=== PATIENT | female | born 1975 | race Caucasian/White ===

== ENCOUNTER 2025-01-27 13:47 | Outpatient (AMB) | payer BC, SELFPAY ==
--- OUTSIDE RECORDS SUMMARY | 2022-12-12 12:23 | XMS_ITS | Encounter Summary ---
Author Organization [facility] Address [address] [place] [phone] Phone Care Team Providers Care Director Safety Name Role Phone Gina Alves MD Primary Care Prov ider Encounter Details Date Type Department Care Team (Late st Contact Info) Description 12/12/2022 12:23 PM EDT Hospital Encounter [facility] [address] [place] [phone] Rose Henderson, VICE PRESIDENT TALENT MANAGEMENT [address] [place] [address] [email or web address] Social History Tobacco Use Types [...] body is visualized. us Rose B Kiall VICE PRESIDENT TALENT MANAGEMENT IMG XR LOWER EXTREMITY Gissell l Result documented in this encounter Visit Diagnoses Not on filedocumented in this encounter Care Teams Director Safety Relationship Specialty Start Date End Date Gina Alves MD [address] [place] [address] [place] [address] PCP - General 12/12/22 documented as of this encounter Additional Source Comments The information contained in this document represents components of the legal health record. It is not the complete legal health record.[facility]
--- OUTSIDE RECORDS SUMMARY | 2025-01-27 15:57 | XMS_ITS | Continuity of Care Document ---
Author Organization [facility] [address] [place] [address] Phone [phone] Care Team Providers Care Senior Information Security Consultant Name Role Phone Gina Alves M.D. Care Team Informati on Mental Health Social Worker [phone] Problems Active Problems Provider Date Type 2 diabetes mellitus Gina Alves M.D. Onset: 12/28/2021 Essential hypertension Cynthia Vergara Onset: 12/28/2021 Anxiety Gina Alves M.D. Ons et: 12/28/2021 Obstructive sleep apnea syndrome Gina Gibson M.D. Onset: 12/28/2021 Gastroesophageal reflux disease Gina Moreland M.D. Onset: 12/28/2021 Obesity Gina Alves M.D. Ons et: 12/28/2021 Mixed hyperlipidemia Francois Vergara Onset: 12/28/2021 Chronic depression Gina Alves M.D. Onset: 12/28/2021 Nonalcoholic steatohepatitis Gina harper M.D. Onset: 12/28/2021 Environmental allergy Wojciech Vergara Onset: 10/28/2023 Social History Type Date Description Comments Sex Female Sex Unknown Lives With Roommate Occupation [employer] Work Status Full-Time Employment ETOH Use Occasionally consumes alcoho l Tobacco Use Start: Unknown Patient has never smoked Allergies and adverse reactions Description No Known Drug Allergies Medications Active Medications SIG Qnty Indications Order ing Provider Date Lauraity4.5mg/0.5M L Solution Auto-Inject Inject 4.5 MG Subcutaneously Every Week 2ml E11.9 Gina Alves M.D. 01/13/2025 Mounjaro7.5mg/0.5ML Solution Auto-Inject Inject 7.5 MG Subcutaneously Once A Week as Directed 2units E11.9 Gina Alves M.D. 06/17/2024 E66.9 Atorvastatin Bhaohin10ul Tablets take 1 tablet by mouth daily 90tabs Gina Alves M.D. 01/20/2023 Norethindrone Xalqmix8rk Tablets Take 1 Tablet By Mouth Daily For 1 Week Per Month 21tabs Gina Alves M.D. Crchyyurgd11uu Tablets Take 1 Tablet By Mouth Every Day 90tabs Gina Alves M.D. Metformin [id number] Tablets Take 1 Tablet By Mouth Every Morning And 2 Tablets Every Evening 270tabs Gina Alves M.D. Sertraline LJO03ml Tablets Take 1 Tablet By Mouth Every Day 90tabs Gina Alves M.D. Dzaldnkjj82fw Tablets Take One Tablet By Mouth Daily 90tabs Gina Alves M.D. Mgmeubfayb44yp Capsules DR 1 by mouth every day Gina Alves M.D. Aulrjzxgab24cj Capsules 1 by mouth every day Gina Alves M.D. Ferrous Ugfbdgl945(65Fe) mg Tablets 1 by mouth every other day Gina Alves M.D. Vitamin C500mg Tablets 1 by mouth every other day Gina Alves M.D. Nxafxl071tu Capsules 1 by mouth every other day Gina Alves M.D. Vitamin E180mg (400 Unit) Capsules 2 qd Gina Alves M.D. Womens MultivitaminTablets 1 by mouth every day Gina Alves M.D. History Medications Adnljoyzh4ug/0.5ML Solution Auto-Inject Inject 3 MG Subcutaneously Every Week 2ml E11.9 Gina Alves M.D. 10/15/2024 - 01/13/2025 Vital Signs Date Vital Result Comment 08/27/2024 2:27pm BP Systolic 130 mmHg BP Diastolic 80 mmHg Heart Rate 99 /min Height 63 inches 5'3 Weight 251.25 lb BMI (Body Mass Index) 44.5 kg/m2 Results Test Acquired Date Facility Test Result H/L Range Note Vitamin B12 08/27/2024 [facility] Vitamin B12 533 pg/mL 232-1245 Comp. Metabolic Panel (14) 08/27/2024 [facility] Glucose 125 mg/dL High 70-99 BUN 13 mg/dL 6-24 Creatinine 0.82 mg/dL 0.57-1.0 0 eGFR 87 mL/min/1. 73 >59 BUN/Creatinine Ratio 16 9-23 Sodium 142 mmol/L 134-144 Potassium 4.1 mmol/L 3.5-5.2 Chloride 103 mmol/L 96-106 Carbon Dioxide, Total 16 mmol/L Low 20-29 Calcium 9.2 mg/dL 8.7-10.2 Protein, Total 7.3 g/dL 6.0-8.5 Albumin 4.4 g/dL 3.9-4.9 Globulin, Total 2.9 g/dL 1.5-4.5 Bilirubin, Total <0.2 mg/dL 0.0-1.2 Alkaline Phosphatase 103 IU/L 44-121 Ast (Sgot) 41 IU/L High 0-40 Alt (SGPT) 34 IU/L High 0-32 Hemoglobin A1c 08/27/2024 Inhouse Hemoglobin A1c 6.1% Glucose Fingerstick 08/27/2024 Inhouse Glucose Fingerstick 134 Glucose Fingerstick 04/29/2024 Inhouse Glucose Fingerstick 107 Comp. Metabolic Panel (14) 02/17/2024 [facility] Glucose 105 mg/dL High 70-99 BUN 15 mg/dL 6-24 Creatinine 0.83 mg/dL 0.57-1.0 0 eGFR 86 mL/min/1. 73 >59 BUN/Creatinine Ratio 18 9-23 Sodium 140 mmol/L 134-144 Potassium 4.2 mmol/L 3.5-5.2 Chloride 100 mmol/L 96-106 Carbon Dioxide, Total 24 mmol/L 20-29 Calcium 9.1 mg/dL 8.7-10.2 Protein, Total 7.4 g/dL 6.0-8.5 Albumin 4.2 g/dL 3.9-4.9 Globulin, Total 3.2 g/dL 1.5-4.5 Bilirubin, Total <0.2 mg/dL 0.0-1.2 Alkaline Phosphatase 96 IU/L 44-121 Ast (Sgot) 48 IU/L High 0-40 Alt (SGPT) 40 IU/L High 0-32 CBC With Differential/Plat elet 02/17/2024 [facility] WBC 6.8 x10E3/uL 3.4-10.8 RBC 5.15 x10E6/uL 3.77-5.2 8 Hemoglobin 14.4 g/dL 11.1-15. 9 Hematocrit 44.9 % 34.0-46. 6 MCV 87 fL 79-97 MCH 28.0 pg 26.6-33. 0 MCHC 32.1 g/dL 31.5-35. 7 RDW 13.4 % 11.7-15. 4 Platelets 344 x10E3/uL 150-450 Neutrophils 57 % Not Estab. Lymphs 32 % Not Estab. Monocytes 10 % Not Estab. Eos 1 % Not Estab. Basos 0 % Not Estab. Immature Cells TNP Neutrophils (Absolute) 3.8 x10E3/uL 1.4-7.0 Lymphs (Absolute) 2.2 x10E3/uL 0.7-3.1 Monocytes(Absol u te) 0.7 x10E3/uL 0.1-0.9 Eos (Absolute) 0.1 x10E3/uL 0.0-0.4 Baso (Absolute) 0.0 x10E3/uL 0.0-0.2 Immature Granulocytes 0 % Not Estab. Immature Grans (Abs) 0.0 x10E3/uL 0.0-0.1 NRBC TNP Hematology Comments: TNP Albumin/Creatinin e Ratio, Random Urine 02/17/2024 [facility] Creatinine, Urine 91.3 mg/dL Not Estab. Albumin, Urine 4.6 ug/mL Not Estab. Alb/Creat Ratio 5 mg/gcreat 0-29 1 Glucose Fingerstick 02/17/2024 Inhouse Glucose Fingerstick 122 Hemoglobin A1c 02/17/2024 Inhouse Hemoglobin A1c 6.4% Glucose Fingerstick 10/28/2023 Inhouse Glucose Fingerstick 129 Hemoglobin A1c 10/28/2023 Inhouse Hemoglobin A1c 6.3% Comprehensive Metabolic Panl 07/19/2023 [facility] Glucose 85 mg/dL (70-99) BUN 12 mg/dL (6-20) Creatinine 0.9 mg/dL (0.5-1.0 ) Sodium 140 mmol/L (133-145 ) Potassium 4.5 mmol/L (3.6-5.2 ) Chloride 100 mmol/L (98-107) Bicarbonate 25 mmol/L (22-29) Anion Gap 15 (4-17) Albumin 4.5 GM/DL (3.4-4.8 ) Calcium 9.4 mg/dL (8.6-10. 5) Bilirubin,Total 0.2 mg/dL (0-1.2 ) Total Protein 7.5 GM/DL (6.2-8.2 ) Ag Ratio 1.5 Ast 37 U/L High (0-32) Alk Phos 82 U/L (35-104) Alt 30 U/L (0-33) Estimated GFR Creatinine 83 ML/MIN/1. 73M2 2 Hemoglobin A1c 07/19/2023 Inhouse Hemoglobin A1c 6.0% Glucose Fingerstick 07/19/2023 Inhouse Glucose Fingerstick 106 Lipid Panel 07/18/2023 [facility] Cholesterol, Total 142 mg/dL (<200) Triglyceride 135 mg/dL (<150) HDL Chol 33 mg/dL Low (>39) LDL Cholesterol , Calculated 82 mg/dL (0-130) Non HDL Cholesterol (Calc) 109 mg/dL (<160) Glucose Fingerstick 04/15/2023 Inhouse Glucose Fingerstick 149 Hemoglobin A1c 04/15/2023 Inhouse Hemoglobin A1c 6.2% Urinary Microalbumin 01/18/2023 [facility] Micro-Albumin <12.0 mg/L (<20) 3 Malb/Creat Ratio Unable t o calcul <SEE NOTE> MG/GM (0-20) 4 Urine Creat For Micro Albumin 92.3 mg/dL Lipid Panel 01/18/2023 [facility] Cholesterol, Total 175 mg/dL (<200) Triglyceride 147 mg/dL (<150) HDL Chol 38 mg/dL Low (>39) LDL Cholesterol , Calculated 108 mg/dL (0-130) Non HDL Cholesterol (Calc) 137 mg/dL (<160) Comprehensive Metabolic Panl 01/18/2023 [facility] Glucose 102 mg/dL High (70-99) BUN 12 mg/dL (6-20) Creatinine 0.8 mg/dL (0.5-1.0 ) Sodium 141 mmol/L (133-145 ) Potassium 4.2 mmol/L (3.6-5.2 ) Chloride 103 mmol/L (98-107) Bicarbonate 26 mmol/L (22-29) Anion Gap 12 (4-17) Albumin 4.0 GM/DL (3.4-4.8 ) Calcium 9.0 mg/dL (8.6-10. 5) Bilirubin,Total <0.2 mg/dL (0-1.2) Total Protein 6.6 GM/DL (6.2-8.2 ) Ag Ratio 1.5 Ast 42 U/L High (0-32) Alk Phos 90 U/L (35-104) Alt 35 U/L High (0-33) Estimated GFR Creatinine 88 ML/MIN/1. 73M2 5 Complete Abc With Diff 01/18/2023 [facility] WBC 6.9 K/MM3 (4.0-11. 0) RBC 4.87 M/MM3 (4.20-5. 40) HGB 13.6 GM/DL (11.7-15 .5) HCT 43.6 % (35.7-45 .8) MCV 89.5 FL (80.0-10 0.0) MCH 27.9 pg (27.0-34 .0) MCHC 31.2 g/dL Low (33.0-37 .0) PLT 294 K/MM3 (150-460 ) RDW-SD 45.5 FL (<47.0) MPV 9.3 FL Low (9.4-12. 4) Automated NRBC 0.0 #/100WBC' S Abs. NRBC 0.0 K/MM3 Neut # 4.1 K/MM3 (1.3-7.0 ) Lymph # 2.1 K/MM3 (0.8-3.1 ) [place]# 0.6 K/MM3 (0.4-0.9 ) Eo # 0.1 K/MM3 (0.0-0.4 ) Baso # 0.0 K/MM3 (0.0-0.1 ) Abs. Imm Gran 0.0 K/MM3 Neut 59.1 % (44-76) Lymph 29.7 % (15-43) Monocyte 8.8 % (4.5-10. 5) Eo 1.4 % (0-6) Baso 0.4 % (0-2) Imm Gran 0.6 % Glucose Fingerstick 01/16/2023 Inhouse Glucose Fingerstick 109 Hemoglobin A1c 01/16/2023 Inhouse Hemoglobin A1c 6.0% Glucose Fingerstick 10/11/2022 Inhouse Glucose Fingerstick 120 Hemoglobin A1c 10/11/2022 Inhouse Hemoglobin A1c 6.0% Comprehensive Metabolic Panl 07/18/2022 [facility] Glucose 114 mg/dL High (70-99) BUN 13 mg/dL (6-20) Creatinine 0.8 mg/dL (0.5-1.0 ) Sodium 140 mmol/L (133-145 ) Potassium 4.0 mmol/L (3.6-5.2 ) Chloride 101 mmol/L (98-107) Bicarbonate 28 mmol/L (22-29) Anion Gap 11 (4-17) Albumin 4.3 GM/DL (3.4-4.8 ) Calcium 9.6 mg/dL (8.6-10. 5) Bilirubin,Total <0.2 mg/dL (0-1.2) Total Protein 7.2 GM/DL (6.2-8.2 ) Ag Ratio 1.5 Ast 40 U/L High (0-32) Alk Phos 79 U/L (35-104) Alt 27 U/L (0-33) Estimated GFR Creatinine 88 ML/MIN/1. 73M2 6 Glucose Fingerstick 07/18/2022 Inhouse Glucose Fingerstick 121 Hemoglobin A1c 07/18/2022 Inhouse Hemoglobin A1c 5.9% Glucose Fingerstick 04/12/2022 Inhouse Glucose Fingerstick 108 Hemoglobin A1c 04/12/2022 Inhouse Hemoglobin A1c 5.9 Comprehensive Metabolic Panl 12/28/2021 [facility] Glucose 81 mg/dL (70-99) BUN 14 mg/dL (6-20) Creatinine 0.8 mg/dL (0.5-1.0 ) Sodium 139 mmol/L (133-145 ) Potassium 4.0 mmol/L (3.6-5.2 ) Chloride 100 mmol/L (98-107) Bicarbonate 28 mmol/L (22-29) Anion Gap 11 (4-17) Albumin 4.6 GM/DL (3.4-4.8 ) Calcium 9.1 mg/dL (8.6-10. 5) Bilirubin,Total 0.2 mg/dL (0-1.2 ) Total Protein 7.4 GM/DL (6.2-8.2 ) Ag Ratio 1.6 Ast 29 U/L (0-32) Alk Phos 91 U/L (35-104) Alt 21 U/L (0-33) Estimated GFR Creatinine 87 ML/MIN/1. 73M2 7 Lipid Panel 12/28/2021 [facility] Cholesterol, Total 152 mg/dL (<200) Triglyceride 129 mg/dL (<150) HDL Chol 33 mg/dL Low (>39) LDL Cholesterol , Calculated 93 mg/dL (0-130) Non HDL Cholesterol (Calc) 119 mg/dL (<160) Complete Abc With Diff 12/28/2021 [facility] WBC 7.1 K/MM3 (4.0-11. 0) RBC 4.95 M/MM3 (4.20-5. 40) HGB 13.9 GM/DL (11.7-15 .5) HCT 44.1 % (35.7-45 .8) MCV 89.1 FL (80.0-10 0.0) MCH 28.1 pg (27.0-34 .0) MCHC 31.5 g/dL Low (33.0-37 .0) PLT 453 K/MM3 (150-460 ) RDW-SD 48.3 FL High (<47.0) MPV 9.9 FL (9.4-12. 4) Automated NRBC 0.0 #/100WBC' S Abs. NRBC 0.0 K/MM3 Neut # 4.1 K/MM3 (1.3-7.0 ) Lymph # 2.2 K/MM3 (0.8-3.1 ) [place]# 0.7 K/MM3 (0.4-0.9 ) Eo # 0.2 K/MM3 (0.0-0.4 ) Baso # 0.0 K/MM3 (0.0-0.1 ) Abs. Imm Gran 0.0 K/MM3 Neut 56.8 % (44-76) Lymph 30.2 % (15-43) Monocyte 9.6 % (4.5-10. 5) Eo 2.5 % (0-6) Baso 0.3 % (0-2) Imm Gran 0.6 % Magnesium 12/28/2021 [facility] Magnesium 2.1 mg/dL (1.6-2.3 ) Vitamin B12 12/28/2021 [facility] Vitamin B12 448 pg/mL (232-124 5) Urinary Microalbumin 12/28/2021 [facility] Micro-Albumin <12.0 mg/L (<20) 8 Malb/Creat Ratio Unable t o calcul <SEE NOTE> MG/GM (0-20) 9 Urine Creat For Micro Albumin 50.9 mg/dL Hemoglobin A1c 12/28/2021 Inhouse Hemoglobin A1c 5.9 Glucose Fingerstick 12/28/2021 Inhouse Glucose Fingerstick 117 1 Normal: 0 - 29 Moderately increased: 30 - 300 Severely increased: >300 2 Creatinine based est imated glomerular filtration (eGFR) in adults is calculated using the National [employer] recommended 202 CKD-EPI equation. Estimates GFR from serum creatinine, age and sex. 3 The urine microalbum in test is designed to monitor renal function. When screening for Bence Alanis proteinuria, urine electrophoresis is recommended. 4 Unable to calculate 5 Creatinine based est imated glomerular filtration (eGFR) in adults is calculated using the National [employer] recommended 2021 CKD-EPI equation. Estimates GFR from serum creatinine, age and sex. 6 Creatinine based est imated glomerular filtration (eGFR) in adults is calculated using the National [employer] recommended 2021 CKD-EPI equation. Estimates GFR from serum creatinine, age and sex. 7 Creatinine based est imated glomerular filtration (eGFR) in adults is calculated using the National [employer] recommended 2021 CKD-EPI equation. Estimates GFR from serum creatinine, age and sex. 8 The urine microalbum in test is designed to monitor renal function. When screening for Bence Alanis proteinuria, urine electrophoresis is recommended. 9 Unable to calculate Procedures Date Code Description Status 08/27/2024 41408 Collection Of Venous Blood B y Venipuncture Completed 02/17/2024 64106 Collection Of Venous Blood B y Venipuncture Completed 07/19/2023 85026 Collection Of Venous Blood B y Venipuncture Completed 07/18/2022 02707 Collection Of Venous Blood B y Venipuncture Completed 12/28/2021 14520 Collection Of Venous Blood B y Venipuncture Completed Medical Devices Description No Information Available Encounters Type Date Location Provider Dx Diagnosis Office Visit 08/27/2024 2:30p Main Office Gina Alves M.D. E11.9 Type 2 diabetes mellitus without complications I10 Essential (primary) hypertension K21.9 Gastro-esophageal re flux disease without esophagitis E78.2 Mixed hyperlipidemia G47.33 Obstructive sleep ap pamela (adult) (pediatric) K75.81 Nonalcoholic steatoh epatitis ([place]) E66.01 Morbid (severe) obes ity due to excess calories F41.1 Generalized anxiety disorder F32.0 Major depressive dis order, single episode, mild Z68.41 Body mass index [BMI ] 40.0-44.9, adult Assessments Date Code Description Provider 08/27/2024 E11.9 Type 2 diabetes mellitus without complications Gina Alves M.D. 08/27/2024 I10 Essential (primary) hyperten madhav Gina Alves M.D. 08/27/2024 K21.9 Gastro-esophagea l reflux disease without esophagitis Gina Alves M.D. 08/27/2024 E78.2 Mixed hyperlipidemia Gerhard Alves M.D. 08/27/2024 G47.33 Obstructive slee p apnea (adult) (pediatric) Gina Alves M.D. 08/27/2024 K75.81 Nonalcoholic steatohepatitis ([place]) Gina Alves M.D. 08/27/2024 E66.01 Morbid (severe) obesity due to excess calories Gina Alves M.D. 08/27/2024 F41.1 Generalized anxiety disorder Gina Alves M.D. 08/27/2024 F32.0 Major depressive disorder, single episode, mild Gina Alves M.D. 08/27/2024 Z68.41 Body mass index [BMI] 40.0-4 4.9, adult Gina Alves M.D. Plan of Treatment Future Appointment(s):* 03/01/2025 1:15 pm - Gina Alves M.D. at Main Office 08/27/2024 - Gina Alves M.D.* E11.9 Type 2 diabetes mellitus without complications * I10 Essential (primary) hypertension * K21.9 Gastro-esophageal reflux disease without esophagitis * E78.2 Mixed hyperlipidemia * G47.33 Obstructive sleep apnea (adult) (pediatric) * K75.81 Nonalcoholic steatohepatitis ([place]) * E66.01 Morbid (severe) obesity due to excess calories * F41.1 Generalized anxiety disorder * F32.0 Major depressive disorder, single episode, mild * Z68.41 Body mass index [BMI] 40.0-44.9, adult Functional Status Description No Information Available Mental Status Description No Information Available Referrals Refer to Dr Reason for Referral Status Appt Horacio e Hyacinth Crooks MD GRAYS[place], ABNORMAL ELASTO GRAPHY Close d 09/04/[address] [id number] [phone] [facility] SLEEP APNEA Closed 2023 [address] [place], [place] [id number] [phone] Hyacinth Crooks MD screening colonoscop y family history of colon cancer in grandfather Closed 06/13/[address] [id number] [phone]
--- OUTSIDE RECORDS SUMMARY | 2025-01-27 15:57 | XMS_ITS | Clinical Summary ---
Author Organization [facility] Address [address] [phone] Phone Care Team Providers Care Hoop Riveter Name Role Phone Gina Alves MD Primary Care Prov ider Allergies No known active allergies Medications ascorbic acid, vitamin C, (VITAMIN C) 500 MG tablet Take by mouth. Active docusate sodium (COLACE) 100 MG capsule Take by mouth. Active dulaglutide (TRULICITY) 1.5 mg/0.5 mL subcutaneous injection Inject under the skin. 07/18/2022 Active lisinopril (PRINIVIL,ZESTRIL ) 20 MG tablet 10/26/2022 Acti ve loratadine 10 mg Cap Take by mouth. Active metFORMIN (GLUCOPHAGE) 500 MG tablet 10/26/2022 Active sertraline (ZOLOFT) 50 MG tablet 10/26/2022 Active omeprazole (PRILOSEC) 20 MG capsule Take by mouth. Active norethindrone (AYGESTIN) 5 mg tablet Take 1 tablet by mouth 2 (two) times a day. 11/26/2022 Active JARDIANCE 10 mg tablet 10/17/2022 Active simvastatin (ZOCOR) 20 MG tablet 10/26/2022 Active vitamin E 400 unit Cap Take by mouth. Active Active Problems No known active problems Immunizations Immunization Administration Dates Next Due Td, unspecified formulation 07/16/2002 Tdap 06/18/2016 Social History Tobacco Use Types Packs/Day Years Used Date Smoking Tobacco: Never Smokeless Tobacco: Never Tobacco Cessation:Counseling Given: Not Answered Digital Access Answer Date Recorded No 12/12/2022 No 12/12/2022 Reliable internet access at home? Not on file 12/12/2022 Device with a working camera? Not on file Comments Unknown Sex and Gender Information Value Date Recorded Sex Assigned at Not on file Legal Sex Female 10:04 AM EST Gender Identity Not on file Sexual Orientation Not on file Last Filed Vital Signs Vital Sign Reading Time Taken Comments Blood Pressure 125/83 12/12/2022 12:07 PM EDT Pulse 81 12/12/2022 12:07 PM EDT Temperature 36.6 C (97.9 F) 12/12/2022 12:07 PM EDT Respiratory Rate 18 12/12/2022 12:07 PM EDT Oxygen Saturation 97% 12/12/2022 12:07 PM EDT Inhaled Oxygen Concentration - - Weight - - Height - - Body Mass Index - - Plan of Treatment Health Maintenance Due Date Last Done Comments CREATININE LEVEL 1974 LIPID PANEL 1974 POTASSIUM LEVEL 1974 DEPRESSION SCREENING 1986 HEPATITIS C SCREENING 1992 HIV ONE-TIME SCREENING (18-6 5 YEARS) 1992 PAP SMEAR 1995 MAMMOGRAM 2014 COLOGUARD 2019 COLONOSCOPY 2019 COLORECTAL CANCER SCREENING 2019 FIT TEST 2019 FOBT 2019 SIGMOIDOSCOPY 2019 VIRTUAL COLONOSCOPY 2019 COVID-19 VACCINE (4 - 2023-2 5 season) 2024 04/18/2021, 10/14/2020, 09/23/2020 PNEUMOCOCCAL VACCINES (50+ years) (1 of 1 - PCV) 2024 ZOSTER VACCINES (1 of 2) 2024 INFLUENZA VACCINE (#1) 2024 Adult Td,Tdap Booster 06/18/2026 06/18/2016 , 07/16/2002 SMOKING STATUS SCREENING (On ce After 26 Yrs) Completed 12/12/2022 HEPATITIS A VACCINES Aged Out No long er eligible based on patient's age to complete this topic HIB VACCINES Aged Out No longer eligi ble based on patient's age to complete this topic MENINGOCOCCAL VACCINES (ACWY) Aged Out No longer eligible based on patient's age to complete this topic MENINGOCOCCAL VACCINES (B) Aged Out N o longer eligible based on patient's age to complete this topic Medical Devices Not on file Insurance BLUE CROSS OUT OF STATE PPO BLUE CROSS OUT OF STATE PPO BLUE CROSS OUT OF STATE PPO BLUE CROSS OUT OF STATE PPO BLUE CROSS OUT OF STATE PPO BLUE CROSS OUT OF STATE PPO Care Teams Hoop Riveter Relationship Specialty Start Date End Date Gina Alves MD [address] [place] [address] [place] [address] PCP - General 12/12/22 Additional Source Comments The information contained in this document represents components of the legal health record. It is not the complete legal health record.[facility]
== END 2025-01-27 13:55 | disposition home or self-care (01) ==
LOC: HO.HMGAL 13:47
PROVIDERS: Visit Provider Registered Nurse Emergency
DX: J30.89 Other allergic rhinitis (principal)
CPT/HCPCS: 95117; 95165

== ENCOUNTER 2025-03-01 15:20 | Outpatient (AMB) | payer BC, SELFPAY ==
--- OUTSIDE RECORDS SUMMARY | 2022-12-12 12:23 | XMS_ITS | Encounter Summary ---
Author Organization [facility] Address [address] [place] [phone] Phone Care Team Providers Care Crusher And Blender Operator Name Role Phone Gina Alves MD Primary Care Prov ider Encounter Details Date Type Department Care Team (Late st Contact Info) Description 12/12/2022 12:23 PM EDT Hospital Encounter [facility] [address] [place] [phone] Rose Henderson, CHEMICAL EDUCATOR [address] [place] [address] [email or web address] Social History Tobacco Use Types Packs/Day Years [...] body is visualized. us Rose B Kiall CHEMICAL EDUCATOR IMG XR LOWER EXTREMITY Gissell l Result documented in this encounter Visit Diagnoses Not on filedocumented in this encounter Care Teams Crusher And Blender Operator Relationship Specialty Start Date End Date Gina Alves MD [address] [place] [address] [place] [address] PCP - General 12/12/22 documented as of this encounter Additional Source Comments The information contained in this document represents components of the legal health record. It is not the complete legal health record.[facility]
--- OUTSIDE RECORDS SUMMARY | 2025-03-01 17:39 | XMS_ITS | Clinical Summary ---
Author Organization [facility] Address [address] [phone] Phone Care Team Providers Care Saw Feeder Name Role Phone Gina Alves MD Primary [...] CROSS OUT OF STATE PPO Care Teams Saw Feeder Relationship Specialty Start Date End Date Gina Alves MD [address] [place] [address] [place] [address] PCP - General 12/12/22 Additional Source Comments The information contained in this document represents components of the legal health record. It is not the complete legal health record.[facility]
--- OUTSIDE RECORDS SUMMARY | 2025-03-01 17:39 | XMS_ITS | Continuity of Care Document ---
Author Organization [facility] [address] [place] [address] Phone [phone] Care Team Providers Care Landscape Specialist Name Role Phone Gina Alves M.D. 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 5 Atorvastatin [id number] Tablets take 1 tablet by mouth daily 90tabs Gina Alves M.D. 3 Norethindrone Zvfrkhv0av Tablets Take 1 Tablet By Mouth Daily For 1 Week Per Month 21tabs Gina Alves M.D. 0 [id number] Tablets Take 1 Tablet By Mouth Every Day 90tabs Gina Alves M.D. 0 Metformin [id number] Tablets Take 1 Tablet By Mouth Every Morning And 2 Tablets Every Evening 270tabs Gina Alves M.D. 0 Sertraline PBI94qx Tablets Take 1 Tablet By Mouth Every Day 90tabs Gina Alves M.D. 0 Zcpbiksuz09ho Tablets Take One Tablet By Mouth Daily 90tabs Gina Alves M.D. [address] 1 by mouth every day Gina Alves M.D. 0 Occbyahxvh68gb Capsules 1 by mouth every day Gina Alves M.D. 0 Ferrous Rgsnscc168(65Fe) mg Tablets 1 by mouth every other day Gina Alves M.D. 0 Vitamin C500mg Tablets 1 by mouth every other day Gina Alves M.D. 0 Ebxpfj940il Capsules 1 by mouth every other day Gina Alves M.D. 0 Vitamin E180mg (400 Unit) Capsules 2 qd Gina Alves M.D. 0 Womens MultivitaminTablets 1 by mouth every day Gina Alves M.D. 0 History Medications Vacwsixde8er/0.5ML Solution Auto-Inject Inject 3 MG Subcutaneously Every Week 2ml E11.9 Gina Alves M.D. 10/15/2024 - 01/13/2025 Mounjaro7.5mg/0.5ML Solution Auto-Inject Inject 7.5 MG Subcutaneously Once A Week as Directed 2units E11.9 Gina Alves M.D. 06/17/2024 - 03/01/2025 E66.9 Vital Signs Date Vital Result Comment 03/01/2025 1:17pm BP Systolic 132 mmHg BP Diastolic 70 mmHg Heart Rate 88 /min Height 63 inches 5'3 Weight 255.12 lb BMI (Body Mass Index) 45.2 kg/m2 Results Test Acquired Date Facility Test Result H/L Range Note Hemoglobin A1c 03/01/2025 Inhouse Hemoglobin A1c 6.5% Glucose Fingerstick 03/01/2025 Inhouse Glucose Fingerstick 121 Comp. Metabolic Panel (14) 08/27/2024 [facility] Glucose [...] 0-40 Alt (SGPT) 34 IU/L High 0-32 Vitamin B12 08/27/2024 [facility] Vitamin B12 533 pg/mL 232-1245 Glucose Fingerstick 08/27/2024 Inhouse Glucose Fingerstick 134 Hemoglobin A1c 08/27/2024 Inhouse Hemoglobin A1c 6.1% Glucose Fingerstick 04/29/2024 Inhouse Glucose Fingerstick 107 Glucose Fingerstick 02/17/2024 Inhouse Glucose Fingerstick 122 Hemoglobin A1c 02/17/2024 Inhouse Hemoglobin A1c 6.4% Albumin/Creatinin e Ratio, Random Urine 02/17/2024 [facility] Creatinine, Urine 91.3 mg/dL Not Estab. Albumin, Urine 4.6 ug/mL Not Estab. Alb/Creat Ratio 5 mg/gcreat 0-29 1 CBC With Differential/Plat elet 02/17/2024 [facility] WBC [...] x10E3/uL 0.0-0.1 NRBC TNP Hematology Comments: TNP Comp. Metabolic Panel (14) 02/17/2024 [facility] Glucose [...] 0-40 Alt (SGPT) 40 IU/L High 0-32 Glucose Fingerstick 10/28/2023 Inhouse Glucose Fingerstick 129 Hemoglobin A1c 10/28/2023 Inhouse Hemoglobin A1c 6.3% Comprehensive Metabolic Panl 07/19/2023 [facility] Glucose 85 mg/dL (70-99) BUN [...] Estimated GFR Creatinine 83 ML/MIN/1. 73M2 2 Glucose Fingerstick 07/19/2023 Inhouse Glucose Fingerstick 106 Hemoglobin A1c 07/19/2023 Inhouse Hemoglobin A1c 6.0% Lipid Panel 07/18/2023 [facility] Cholesterol, Total 142 mg/dL (<200) Triglyceride 135 mg/dL (<150) HDL Chol 33 mg/dL Low (>39) LDL Cholesterol , Calculated 82 mg/dL (0-130) Non HDL Cholesterol (Calc) 109 mg/dL (<160) Hemoglobin A1c 04/15/2023 Inhouse Hemoglobin A1c 6.2% Glucose Fingerstick 04/15/2023 Inhouse Glucose Fingerstick 149 Comprehensive Metabolic Panl 01/18/2023 [facility] Glucose 102 mg/dL High [...] (0-33) Estimated GFR Creatinine 88 ML/MIN/1. 73M2 3 Lipid Panel 01/18/2023 [facility] Cholesterol, Total 175 mg/dL (<200) Triglyceride 147 mg/dL (<150) HDL Chol 38 mg/dL Low (>39) LDL Cholesterol , Calculated 108 mg/dL (0-130) Non HDL Cholesterol (Calc) 137 mg/dL (<160) Complete Abc With Diff 01/18/2023 [facility] WBC 6.9 K/MM3 (4.0-11. [...] ) Lymph # 2.1 K/MM3 (0.8-3.1 ) Dubois# 0.6 K/MM3 (0.4-0.9 ) Eo # 0.1 K/MM3 (0.0-0.4 ) Baso # 0.0 K/MM3 (0.0-0.1 ) Abs. Imm Gran 0.0 K/MM3 Neut 59.1 % (44-76) Lymph 29.7 % (15-43) Monocyte 8.8 % (4.5-10. 5) Eo 1.4 % (0-6) Baso 0.4 % (0-2) Imm Gran 0.6 % Urinary Microalbumin 01/18/2023 [facility] Micro-Albumin <12.0 mg/L (<20) 4 Malb/Creat Ratio Unable t o calcul <SEE NOTE> MG/GM (0-20) 5 Urine Creat For Micro Albumin 92.3 mg/dL Glucose Fingerstick 01/16/2023 Inhouse Glucose Fingerstick 109 Hemoglobin A1c 01/16/2023 Inhouse Hemoglobin A1c 6.0% Glucose Fingerstick 10/11/2022 Inhouse Glucose Fingerstick 120 Hemoglobin A1c 10/11/2022 Inhouse Hemoglobin A1c 6.0% Hemoglobin A1c 07/18/2022 Inhouse Hemoglobin A1c 5.9% Glucose Fingerstick 07/18/2022 Inhouse Glucose Fingerstick 121 Comprehensive Metabolic Panl 07/18/2022 [facility] Glucose 114 mg/dL High [...] Creatinine 88 ML/MIN/1. 73M2 6 Glucose Fingerstick 04/12/2022 Inhouse Glucose Fingerstick 108 Hemoglobin A1c 04/12/2022 Inhouse Hemoglobin A1c 5.9 Comprehensive Metabolic Panl 12/28/2021 [facility] Glucose 81 mg/dL (70-99) [...] 87 ML/MIN/1. 73M2 7 Lipid Panel 12/28/2021 [facility] Cholesterol, Total 152 mg/dL (<200) Triglyceride 129 mg/dL (<150) HDL Chol 33 mg/dL Low (>39) LDL Cholesterol , Calculated 93 mg/dL (0-130) Non HDL Cholesterol (Calc) 119 mg/dL (<160) Complete Abc With Diff 12/28/2021 [facility] WBC 7.1 K/MM3 (4.0-11. [...] ) Lymph # 2.2 K/MM3 (0.8-3.1 ) Dubois# 0.7 K/MM3 (0.4-0.9 ) Eo # 0.2 K/MM3 (0.0-0.4 ) Baso # 0.0 K/MM3 (0.0-0.1 ) Abs. Imm Gran 0.0 K/MM3 Neut 56.8 % (44-76) Lymph 30.2 % (15-43) Monocyte 9.6 % (4.5-10. 5) Eo 2.5 % (0-6) Baso 0.3 % (0-2) Imm Gran 0.6 % Magnesium 12/28/2021 [facility] Magnesium 2.1 mg/dL (1.6-2.3 ) Vitamin B12 12/28/2021 [facility] Vitamin B12 448 pg/mL (232-124 5) Urinary Microalbumin 12/28/2021 [facility] Micro-Albumin <12.0 mg/L (<20) [...] from serum creatinine, age and sex. 3 Creatinine based est imated glomerular filtration (eGFR) in adults is calculated using the National [employer] recommended 2021 CKD-EPI equation. Estimates GFR from serum creatinine, age and sex. 4 The urine microalbum in test is designed to monitor renal function. When screening for Bence Alanis proteinuria, urine electrophoresis is recommended. 5 Unable to calculate 6 Creatinine based est imated glomerular filtration (eGFR) in adults is calculated using the National [employer] recommended 202 CKD-EPI equation. Estimates GFR from serum creatinine, age and sex. 7 Creatinine based est imated glomerular filtration (eGFR) in adults is calculated using the National [employer] recommended 2020 CKD-EPI equation. Estimates GFR from serum creatinine, age and sex. 8 The urine microalbum in test is designed to monitor renal function. When screening for Bence Alanis proteinuria, urine electrophoresis is recommended. 9 Unable to calculate Procedures Date Code Description Status 08/27/2024 09069 Collection Of Venous Blood B y Venipuncture Completed 02/17/2024 73346 Collection Of Venous Blood B y Venipuncture Completed 07/19/2023 43575 Collection Of Venous Blood B y Venipuncture Completed 07/18/2022 21383 Collection Of Venous Blood B y Venipuncture Completed 12/28/2021 25221 Collection Of Venous Blood B y Venipuncture [...] 40.0-44.9, adult Assessments Date Code Description Provider 03/01/2025 E11.9 Type 2 diabetes mellitus without complications Gina Alves M.D. 08/27/2024 E11.9 Type 2 diabetes mellitus without [...] Alves M.D. Plan of Treatment Future Appointment(s):* 11/03/2025 3:15 pm - Gina Alves M.D. at Main Office * 07/05/2025 3:15 pm - Gina Alves M.D. at Main Office 03/01/2025 - Gina Alves M.D.* E11.9 Type 2 diabetes mellitus without complications* New Labs:* Comprehensive Metabolic Panel, Ordered: 03/01/25 * Albumin, Random Urine With Creatinine, Ordered: 03/01/25 Functional Status Description No Information Available Mental Status Description No Information Available Referrals Refer to Dr Reason for Referral Status Appt Horacio e Hyacinth Crooks MD GRAYSON, ABNORMAL ELASTO GRAPHY Close d 09/04/[address] [address] [phone] [facility] SLEEP APNEA Closed 2023 [address] [place], [place] [id number] [phone] Hyacinth Crooks MD screening colonoscop y family history of colon cancer in grandfather Closed 06/13/[address] [id number] [phone]
== END 2025-03-01 15:21 | disposition home or self-care (01) ==
LOC: HO.HMGAL 15:20
PROVIDERS: PCP Internal Medicine Endocrinology, Diabetes & Metabolism; Visit Provider Registered Nurse Emergency
DX: J30.89 Other allergic rhinitis (principal)
CPT/HCPCS: 95117; 95165

== ENCOUNTER 2025-04-28 15:32 | Outpatient (AMB) | payer BC, SELFPAY ==
--- OUTSIDE RECORDS SUMMARY | 2022-12-12 11:23 | XMS_ITS | Encounter Summary ---
Author Organization [facility] Address [address] [place] [phone] Phone Care Team Providers Care Sightseeing Guide Name Role Phone Gina Alves MD Primary Care Prov ider Encounter Details Date Type Department Care Team (Late st Contact Info) Description 12/12/2022 12:23 PM EDT Hospital Encounter [facility] [address] [place] [phone] Rose Henderson, ACCOUNTS ADMINISTRATOR [address] [place] [address] [email or web address] Social History Tobacco Use Types Packs/Day Years Used Date Smoking Tobacco: Never Smokeless Tobacco: Never Digital Access Answer Date Recorded No 12/12/2022 No 12/12/2022 Reliable internet access at home? Not on file 12/12/2022 Device with a working camera? Not on file Comments Unknown Sex and Gender Information Value Date Recorded Sex Assigned at Not on file Legal Sex Female 10:04 AM EST Gender Identity Not on file Sexual Orientation Not on file documented as of this encounter Plan of Treatment Not on file documented as of this encounter Procedures Procedure Name Priority Date/Time Associated Diagnosis Comments XR TOES 2 OR MORE VIEWS (RIGHT) Urgent/patient waiting 12/12/2022 12:29 PM EDT Pain and swelling of toe, right documented in this encounter Results * XR Toes 2 or More Views (Right) (12/12/2022 12:29 PM EDT) Anatomical Region Laterality Modality Foot Right Computed Radiogr aphy 12/12/2022 12:3 6 PM EDT Impressions 12/12/2022 12:38 PM EDT FINDINGS AND IMPRESSION: There is mild soft tissue swelling around the mid 4th toe. No acute fracture or dislocation is identified. 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 No soft tissue calcification or radiopaque foreign body is visualized. Narrative 12/12/2022 12:38 PM EDT XR TOES 2 OR MORE VIEWS (RIGHT) COMPARISON: None. Procedure Note Ho Power MD - 12/12/2022 XR TOES 2 OR MORE VIEWS (RIGHT) COMPARISON: None. IMPRESSION: FINDINGS AND IMPRESSION: There is mild soft tissue swelling around the mid 4th toe. No acutefracture or dislocation is identified. Flattening of the 2nd metatarsalhead and mild degenerative changes of the 2nd metatarsophalangeal jointmost likely represent sequela from prior Freiberg's infraction. No softtissue calcification or radiopaque foreign body is visualized. us Rose B Kiall ACCOUNTS ADMINISTRATOR IMG XR LOWER EXTREMITY Gissell l Result documented in this encounter Visit Diagnoses Not on filedocumented in this encounter Care Teams Sightseeing Guide Relationship Specialty Start Date End Date Gina Alves MD [address] [place] [address] [place] [address] PCP - General 12/12/22 documented as of this encounter Additional Source Comments The information contained in this document represents components of the legal health record. It is not the complete legal health record.[facility]
--- OUTSIDE RECORDS SUMMARY | 2025-04-28 18:29 | XMS_ITS | Clinical Summary ---
Author Organization [facility] Address [address] [phone] Phone Care Team Providers Care Fisheries Manager Name Role Phone Gina Alves MD Primary [...] FOBT 2019 SIGMOIDOSCOPY 2019 VIRTUAL COLONOSCOPY 2019 PNEUMOCOCCAL VACCINES (50+ years) (1 of 1 - PCV) 2024 RSV VACCINE (1 - Risk 50-74 years 1-dose series) 2024 ZOSTER VACCINES (1 of 2) 2024 INFLUENZA VACCINE (#1) 2024 COVID-19 VACCINE (4 - 2024-2 6 season) 2025 04/18/2021, 10/14/2020, 09/23/2020 Adult Td,Tdap Booster 06/18/2026 06/18/2016 , 07/16/2002 [...] topic Medical Devices Not on file [place] [address] OUT OF [facility] [place] [address] [place] [address] OUT OF [facility] P[place] [address] OUT [facility] PPO BLUE CROSS OUT OF STATE PPO BLUE CROSS OUT OF STATE PPO BLUE CROSS OUT OF STATE PPO Care Teams Fisheries Manager Relationship Specialty Start Date End Date Gina Alves MD [address] [place] [address] [place] [address] PCP - General 12/12/22 Additional Source Comments The information contained in this document represents components of the legal health record. It is not the complete legal health record.[facility]
== END 2025-04-28 15:32 | disposition home or self-care (01) ==
LOC: HO.HMGAL 15:32
PROVIDERS: PCP Internal Medicine Endocrinology, Diabetes & Metabolism; Visit Provider Registered Nurse Emergency
DX: J30.89 Other allergic rhinitis (principal)
CPT/HCPCS: 95117; 95165